=== PATIENT | male | born 1955 | race Caucasian/White ===

== ENCOUNTER 2016-10-07 16:22 | Emergency (ER) | payer MEDICARE, OTHER ==
[~2016-10-07] VITALS: Ht 180.3 cm; Wt 136.1 kg
[~2016-10-07 16:22] MED LIST: ASPI81CH43 PO; CARV12.544 PO; CETI5CHW PO; CHOL135C6 PO; CHOL200021 PO; DIG025T PO; DIGO0.1262 PO; DOXY-216 PO; HYDR-4663 PO; INSLANTI SC; INSUINJ9 IJ; LISI10TA6 PO; LORA-154 GT; MONT10TA34 PO; NIAC500T71 PO; OMEP20CA74 PO; PRED-188 PO; RANITAB8 PO; TRAM50TA2 PO; WARF2.5T PO
[2016-10-07 16:45] VITALS: BP 148/81
[2016-10-07] MEDS ORDERED: CYCLOBENZAPRINE HCL 10 MG TAB PO ONE (17:00)
[2016-10-07] MEDS ORDERED: cefTRIAXone SOD 1,000 MG VL IM ONE (17:00)
[2016-10-07] MEDS ORDERED: KETOROLAC TROMETH 60MG/2ML VIAL IM ONE (17:00)
[2016-10-07] MEDS ORDERED: HYDROcodone-ACET 10/325MG TAB PO ONE ×2 (18:00→22:45)
== END 2016-10-07 22:30 | disposition home or self-care (01) ==
LOC: ER 16:22 → EDBD 16:22 → ER 19:02
DX: S33.5XXA Sprain of ligaments of lumbar spine, initial encounter (principal); N39.0 Urinary tract infection, site not specified; M54.31 Sciatica, right side; E11.22 Type 2 diabetes mellitus with diabetic chronic kidney disease; I12.9 Hypertensive chronic kidney disease with stage 1 through stage 4 chronic kidney disease, or unspecified chronic kidney disease; N18.9 Chronic kidney disease, unspecified; I48.91 Unspecified atrial fibrillation; Z85.9 Personal history of malignant neoplasm, unspecified; Z79.01 Long term (current) use of anticoagulants; Z79.4 Long term (current) use of insulin; Z79.82 Long term (current) use of aspirin; E66.01 Morbid (severe) obesity due to excess calories; Z68.41 Body mass index [BMI] 40.0-44.9, adult; Z91.09 Other allergy status, other than to drugs and biological substances; X58.XXXA Exposure to other specified factors, initial encounter; Y93.89 Activity, other specified; Y99.8 Other external cause status; Y92.89 Other specified places as the place of occurrence of the external cause
CPT/HCPCS: 72100; 72131; 82962; 96372; 99284; J0696; J1885

== ENCOUNTER 2017-04-17 12:15 | Inpatient (IN) | payer OTHER ==
[~2017-04-17] VITALS: Ht 180.3 cm; Wt 143.3 kg
[~2017-04-17 12:15] MED LIST changes: -HYDR-4663 PO; +HYDR-4683 PO
[2017-04-17] MEDS ORDERED: SODIUM CHLORIDE 0.9% 500 ML IVB ONE (12:41)
[2017-04-17] MEDS ORDERED: PANTOPRAZOLE 40 MG/10 ML VIAL IV ONE (12:45)
[2017-04-17 13:36] LABS: Basophils # (auto) 0 uL; Basophils % (auto) 0.3 % (0.0-2.0); Eosinophils # (auto) 0.1 uL; Hematocrit 42.5 % (41.0-53.0); Hemoglobin 13.3 g/dL (13.5-17.5); Lymphocytes # (auto) 1.1 uL; Lymphocytes % (auto) 8.9 % (10.0-50.0); Mean Corpuscular Hemoglobin 29.3 pg (28.0-32.0); Mean Corpuscular Hgb Conc. 31.3 g/dL (32.0-36.0); Mean Corpuscular Volume 93.5 fL (80.0-100.0); Monocytes # (auto) 1.1 uL; Monocytes % (auto) 9.3 % (0.0-12.0); Neutrophils # (auto) 9.6 uL; Neutrophils % (auto) 80.5 % (37.0-80.0); Nucleated Red Blood Cells % 0.2 %; Platelet Count (auto) 197 10^3/uL (140-450); Red Blood Cells 4.55 10^6/uL (4.5-5.90); Red Cell Distribution Width 15.3 % (11.8-14.3)
[2017-04-17 13:49] LABS: INR 0.98 (0.9-1.15); Partial Thromboplastin Time 25.5 sec (22.64-33.71); Prothrombin Time 10.7 sec (9.37-12.3)
[2017-04-17 13:52] LABS: BUN/Creatinine Ratio 30.8; Bilirubin, Total 0.8 mg/dL (0.2-1.0); Calcium 8.4 mg/dL (8.5-10.1); Total Protein 6.4 g/dL (6.4-8.2)
[2017-04-17] MEDS ORDERED: MORPHINE SULF INJ 2 MG/ML SYRINGE 1ML IV PRN (15:45)
[2017-04-17] MEDS ORDERED: ACETAMINOPHEN 325 MG TAB PO PRN (15:45)
[2017-04-17] MEDS ORDERED: ONDANSETRON HCL 4 MG/2 ML VIAL IV PRN (15:45)
[2017-04-17] MEDS ORDERED: NITROGLYCERIN 0.4 MG SL TAB SL PRN (15:45)
[2017-04-17] MEDS ORDERED: INSREG3 SC (16:05)
[2017-04-17] MEDS ORDERED: GABA-339 PO (16:05)
[2017-04-17] MEDS ORDERED: FENO1TAB42 PO (16:05)
[2017-04-17] MEDS ORDERED: INSLANTI SC (16:05)
[2017-04-17] MEDS: HYDROcodone-ACET 10/325MG TAB PO PRN (16:17)
[2017-04-17] MEDS: SODIUM CHLORIDE 0.9% 1,000 ML IV SCH (16:22)
[2017-04-17] MEDS: InsuLIN REG 1unit/0.01ml Soln (100units/ml) SC SCH (17:32)
[2017-04-17] MEDS: GABAPENTIN 100 MG CAP PO SCH ×2 (18:00→22:27)
[2017-04-17 22:00] VITALS: BP 116/71
[2017-04-17] MEDS: CARVEDILOL 12.5 MG TAB PO SCH (22:26)
[2017-04-17] MEDS: INSULIN DETEMIR(LEVEMIR) 1unit/0.01ml Soln (100units/ml) SC SCH (22:27)
[2017-04-17] MEDS: predniSONE 20 MG TAB PO SCH (22:28)
[2017-04-18 05:01] VITALS: BP 135/75
[2017-04-18] MEDS: SODIUM CHLORIDE 0.9% 1,000 ML IV SCH ×4 (05:04→14:07)
[2017-04-18] MEDS: GABAPENTIN 100 MG CAP PO SCH ×4 (05:45→21:44)
[2017-04-18] MEDS: HYDROcodone-ACET 10/325MG TAB PO PRN ×3 (05:45→21:46)
[2017-04-18] MEDS: InsuLIN REG 1unit/0.01ml Soln (100units/ml) SC SCH ×3 (06:53→18:45)
[2017-04-18] MEDS: DIGOXIN 0.25 MG TAB PO SCH (06:53)
[2017-04-18] MEDS ORDERED: ceFAZolin 1GM/50ML 100 ML IV ONE (09:13)
[2017-04-18] MEDS ORDERED: LIDOCAINE 1% HCL (LOCAL ANESTH.) INJ 20ML MDV ONE (09:14)
[2017-04-18] MEDS ORDERED: ceFAZolin 1GM VL ONE (09:14)
[2017-04-18] MEDS ORDERED: BUPIVACAINE 0.25% INJ 50ML VIAL ONE (09:14)
[2017-04-18] MEDS ORDERED: MIDAZOLAM HCL 1MG/1ML-2 ML VIAL ONE (09:34)
[2017-04-18] MEDS ORDERED: fentaNYL CITRATE 5 ML ONE (09:34)
[2017-04-18] MEDS ORDERED: SUCCINYLCHOLINE CHLORIDE 20 MG/ML 10ML VIAL IV ONE (09:35)
[2017-04-18] MEDS ORDERED: PROPOFOL 10 MG/ML 20 ML IV ONE (09:38)
[2017-04-18] MEDS ORDERED: ROCURONIUM 10MG/ML 10ML VIAL IV ONE (09:44)
[2017-04-18 09:58] LABS: Basophils # (auto) 0.1 uL; Basophils % (auto) 0.5 % (0.0-2.0); Eosinophils # (auto) 0.2 uL; Eosinophils % (auto) 1.7 % (0.0-7.0); Hematocrit 38.3 % (41.0-53.0); Hemoglobin 12.8 g/dL (13.5-17.5); Lymphocytes # (auto) 2.8 uL; Lymphocytes % (auto) 25.6 % (10.0-50.0); Mean Corpuscular Hemoglobin 29.7 pg (28.0-32.0); Mean Corpuscular Hgb Conc. 33.5 g/dL (32.0-36.0); Mean Corpuscular Volume 88.6 fL (80.0-100.0); Monocytes # (auto) 1.3 uL; Monocytes % (auto) 11.9 % (0.0-12.0); Neutrophils # (auto) 6.6 uL; Neutrophils % (auto) 60.3 % (37.0-80.0); Platelet Count (auto) 208 10^3/uL (140-450); Red Blood Cells 4.32 10^6/uL (4.5-5.90); Red Cell Distribution Width 14.7 % (11.8-14.3); White Blood Cell 10.9 10^3/uL (4.4-10.8)
[2017-04-18] MEDS: FENOFIBRATE 134 MG PO SCH (10:00)
[2017-04-18 10:25] LABS: Albumin 2.9 g/dL (3.4-5.0); BUN/Creatinine Ratio 26.6; Bilirubin, Total 0.8 mg/dL (0.2-1.0); Calcium 8.1 mg/dL (8.5-10.1); Potassium 3.2 mmol/L (3.5-5.1)
[2017-04-18] MEDS ORDERED: hydrALAZINE HCL 20 MG/ML VL IV PRN (11:30)
[2017-04-18] MEDS ORDERED: ePHEDrine SULFATE 50 MG/ML AMP IV PRN (11:30)
[2017-04-18] MEDS ORDERED: ONDANSETRON HCL 4 MG/2 ML VIAL IV ONE (11:30)
[2017-04-18] MEDS: HYDROmorphone HCL 2 MG/ML VL IV PRN ×4 (11:40→12:12)
[2017-04-18] MEDS: INSULIN DETEMIR(LEVEMIR) 1unit/0.01ml Soln (100units/ml) SC SCH ×2 (11:43→21:45)
[2017-04-18] MEDS: predniSONE 20 MG TAB PO SCH ×2 (12:59→21:43)
[2017-04-18] MEDS: CARVEDILOL 12.5 MG TAB PO SCH ×2 (12:59→21:44)
[2017-04-18] MEDS: PANTOPRAZOLE 40 MG TAB PO SCH (12:59)
[2017-04-18] MEDS: LORATADINE 10 MG TAB PO SCH (12:59)
[2017-04-18] MEDS: ceFAZolin 1GM/50ML 50 ML IV SCH ×3 (13:00→23:56)
[2017-04-18] MEDS ORDERED: GLYCOPYRROLATE 0.2 MG/ML 1ML VIAL ONE (13:01)
[2017-04-18] MEDS ORDERED: NEOSTIGMINE 1 MG/ML INJ (10mg/10ML VIAL) ONE (13:01)
[2017-04-18 17:18] VITALS: BP 119/70
[2017-04-18 18:14] LABS: Hemoglobin 12.5 g/dL (13.5-17.5); Mean Corpuscular Hemoglobin 29.6 pg (28.0-32.0); Mean Corpuscular Volume 89.8 fL (80.0-100.0); Red Blood Cells 4.23 10^6/uL (4.5-5.90); Red Cell Distribution Width 14.9 % (11.8-14.3); White Blood Cell 13.3 10^3/uL (4.4-10.8)
[2017-04-18 21:45] VITALS: BP 131/77
[2017-04-18] MEDS ORDERED: ceFAZolin 1GM/50ML 50 ML IV ONE (23:53)
[2017-04-19 00:53] LABS: Hematocrit 38.7 % (41.0-53.0); Hemoglobin 12.7 g/dL (13.5-17.5); Mean Corpuscular Hemoglobin 29.3 pg (28.0-32.0); Mean Corpuscular Hgb Conc. 32.7 g/dL (32.0-36.0); Mean Corpuscular Volume 89.6 fL (80.0-100.0); Red Blood Cells 4.32 10^6/uL (4.5-5.90); Red Cell Distribution Width 14.9 % (11.8-14.3); White Blood Cell 13.9 10^3/uL (4.4-10.8)
[2017-04-19] MEDS: HYDROcodone-ACET 10/325MG TAB PO PRN (05:03)
[2017-04-19 05:31] VITALS: BP 116/58
[2017-04-19] MEDS: ceFAZolin 1GM/50ML 50 ML IV SCH ×3 (05:39→18:46)
[2017-04-19 05:57] LABS: Basophils # (auto) 0 uL; Basophils % (auto) 0.2 % (0.0-2.0); Eosinophils # (auto) 0 uL; Eosinophils % (auto) 0.3 % (0.0-7.0); Hematocrit 38.5 % (41.0-53.0); Hemoglobin 12.7 g/dL (13.5-17.5); Lymphocytes # (auto) 1.1 uL; Lymphocytes % (auto) 7.5 % (10.0-50.0); Mean Corpuscular Hemoglobin 29.7 pg (28.0-32.0); Mean Corpuscular Volume 89.8 fL (80.0-100.0); Monocytes # (auto) 1.7 uL; Monocytes % (auto) 11.6 % (0.0-12.0); Neutrophils # (auto) 11.4 uL; Neutrophils % (auto) 80.4 % (37.0-80.0); Nucleated Red Blood Cells % 0.1 %; Platelet Count (auto) 198 10^3/uL (140-450); Red Blood Cells 4.29 10^6/uL (4.5-5.90); White Blood Cell 14.2 10^3/uL (4.4-10.8)
[2017-04-19] MEDS: GABAPENTIN 100 MG CAP PO SCH ×3 (06:24→18:45)
[2017-04-19] MEDS: DIGOXIN 0.25 MG TAB PO SCH (06:44)
[2017-04-19] MEDS: InsuLIN REG 1unit/0.01ml Soln (100units/ml) SC SCH ×3 (06:45→18:45)
[2017-04-19] MEDS: FENOFIBRATE 134 MG PO SCH (08:37)
[2017-04-19] MEDS: PANTOPRAZOLE 40 MG TAB PO SCH (08:38)
[2017-04-19] MEDS: CARVEDILOL 12.5 MG TAB PO SCH (08:39)
[2017-04-19] MEDS: LORATADINE 10 MG TAB PO SCH (08:40)
[2017-04-19] MEDS: INSULIN DETEMIR(LEVEMIR) 1unit/0.01ml Soln (100units/ml) SC SCH (08:40)
[2017-04-19] MEDS: predniSONE 20 MG TAB PO SCH (08:40)
[2017-04-19] MEDS: MORPHINE SULFATE 10 MG/ML INJ 1ML SDV IV PRN ×2 (08:41→19:07)
[2017-04-19 08:42] VITALS: BP 116/58
[2017-04-19] MEDS ORDERED: HYDR-4072 PO (09:03)
[2017-04-19] MEDS ORDERED: ACE325T PO (09:03)
[2017-04-19] MEDS ORDERED: DOCU-94 PO (09:05)
[2017-04-19] MEDS ORDERED: ENOXAPARIN SOD 40 MG/0.4 ML SYRINGE SC SCH (10:00)
[2017-04-19 12:15] VITALS: BP 103/47
[2017-04-19 12:25] LABS: Hematocrit 38.4 % (41.0-53.0); Hemoglobin 12.6 g/dL (13.5-17.5); Mean Corpuscular Hemoglobin 29.3 pg (28.0-32.0); Mean Corpuscular Hgb Conc. 32.7 g/dL (32.0-36.0); Mean Corpuscular Volume 89.8 fL (80.0-100.0); Red Blood Cells 4.28 10^6/uL (4.5-5.90); Red Cell Distribution Width 15.2 % (11.8-14.3); White Blood Cell 13.2 10^3/uL (4.4-10.8)
[2017-04-19 16:11] VITALS: BP 116/58
[2017-04-19 16:25] VITALS: BP 107/67
[2017-04-19] MEDS: SODIUM CHLORIDE 0.9% 1,000 ML IV SCH (17:45)
[2017-04-19] MEDS ORDERED: TAMSULOSIN HYDROCHLORIDE 0.4 MG CAP PO SCH (18:00)
== END 2017-04-19 19:55 | DRG 493 ==
LOC: ER 12:15 → EDBD 12:15 → OVERFLOW 12:16 → CENTRAL 20:05
PROVIDERS: ADMIT Internal Medicine; ATTEND Internal Medicine
PROC: 0MQQ0ZZ Repair Right Ankle Bursa and Ligament, Open Approach (ICD-10-PCS; 2017-04-18)
PROC: 0SSF0ZZ Reposition Right Ankle Joint, Open Approach (ICD-10-PCS; 2017-04-18)
PROC: 0QSJ04Z Reposition Right Fibula with Internal Fixation Device, Open Approach (ICD-10-PCS; principal; 2017-04-18 09:35)
DX: S82.61XA Displaced fracture of lateral malleolus of right fibula, initial encounter for closed fracture (principal); K86.1 Other chronic pancreatitis; E66.01 Morbid (severe) obesity due to excess calories; E11.65 Type 2 diabetes mellitus with hyperglycemia; K76.0 Fatty (change of) liver, not elsewhere classified; Z68.41 Body mass index [BMI] 40.0-44.9, adult; W19.XXXA Unspecified fall, initial encounter; W18.39XA Other fall on same level, initial encounter; I10 Essential (primary) hypertension; I48.91 Unspecified atrial fibrillation; M43.16 Spondylolisthesis, lumbar region; Z79.01 Long term (current) use of anticoagulants; Z82.49 Family history of ischemic heart disease and other diseases of the circulatory system; Z90.49 Acquired absence of other specified parts of digestive tract; Y93.89 Activity, other specified; Y92.89 Other specified places as the place of occurrence of the external cause; S93.421A Sprain of deltoid ligament of right ankle, initial encounter; Z79.899 Other long term (current) drug therapy; Z88.7 Allergy status to serum and vaccine; Z79.82 Long term (current) use of aspirin; Z79.4 Long term (current) use of insulin; S32.059D Unspecified fracture of fifth lumbar vertebra, subsequent encounter for fracture with routine healing; S32.10XD Unspecified fracture of sacrum, subsequent encounter for fracture with routine healing
CPT/HCPCS: 36415; 71045; 73600; 73610; 73630; 74176; 76000; 80053; 82150; 82962; 83036; 83690; 83735; 85025; 85027; 85610; 85730; 93005; 96361; 96372; 96374; 97163; 99291; C9113; J0330; J0690; J1815; J2001; J2250; J2405; J2704; J3490

== ENCOUNTER 2017-05-29 22:03 | Inpatient (IN) | payer OTHER ==
[~2017-05-29] VITALS: Ht 175.3 cm; Wt 131.0 kg
[~2017-05-29 22:03] MED LIST changes: +ACE325T PO; +DOCU-94 PO; -DOXY-216 PO; +FENO1TAB42 PO; +GABA-339 PO; +HYDR-4072 PO; +INSREG3 SC; -PRED-188 PO; -TRAM50TA2 PO
[2017-05-30 00:14] LABS: Basophils # (auto) 0.1 uL; Basophils % (auto) 0.5 % (0.0-2.0); Eosinophils # (auto) 0.2 uL; Hematocrit 48.8 % (41.0-53.0); Hemoglobin 16.2 g/dL (13.5-17.5); Lymphocytes # (auto) 2.3 uL; Mean Corpuscular Hemoglobin 29.5 pg (28.0-32.0); Mean Corpuscular Hgb Conc. 33.2 g/dL (32.0-36.0); Monocytes # (auto) 1.4 uL; Monocytes % (auto) 8.5 % (0.0-12.0); Neutrophils # (auto) 12.4 uL; Nucleated Red Blood Cells % 0.1 %; Platelet Count (auto) 284 10^3/uL (140-450); Red Blood Cells 5.48 10^6/uL (4.5-5.90); Red Cell Distribution Width 15.1 % (11.8-14.3); White Blood Cell 16.4 10^3/uL (4.4-10.8)
[2017-05-30 00:34] LABS: Alanine Aminotransferase 60 U/L (16-61); Albumin 3.3 g/dL (3.4-5.0); Amylase 17 U/L (25-115); Anion Gap 11 (5-15); Aspartate Aminotransferase 32 U/L (15-37); Blood Urea Nitrogen 21 mg/dL (7-18); Calcium 9.3 mg/dL (8.5-10.1); Carbon Dioxide 24 mmol/L (21-32); Chloride 103 mmol/L (98-107); GFR African American 147 mL/min; GFR Non-African American 121 mL/min; Glucose 145 mg/dL (74-106); Lipase 52 U/L (73-393); Potassium 3.9 mmol/L (3.5-5.1); Sodium 138 mmol/L (136-145)
[2017-05-30 00:39] LABS: Alkaline Phosphatase 89 U/L (45-117); Total Protein 7.4 g/dL (6.4-8.2)
[2017-05-30] MEDS ORDERED: SODIUM CHLORIDE 0.9% 1,000 ML IV ONE (01:30)
[2017-05-30] MEDS ORDERED: DILTIAZEM HCL 25 MG/5 ML VIAL IV ONE (01:30)
[2017-05-30] MEDS ORDERED: MECLIZINE HCL 25 MG TAB PO ONE (01:30)
[2017-05-30] MEDS ORDERED: DIGOXIN (250MCG/ML) 2 ML AMPULE IV ONE (03:00)
[2017-05-30] MEDS ORDERED: ACETAMINOPHEN 325 MG TAB PO PRN (09:15)
[2017-05-30] MEDS ORDERED: ONDANSETRON HCL 4 MG/2 ML VIAL IV PRN (09:15)
[2017-05-30] MEDS ORDERED: DOCUSATE SOD 100 MG CAP PO PRN (09:15)
[2017-05-30] MEDS ORDERED: NITROGLYCERIN 0.4 MG SL TAB SL PRN (09:15)
[2017-05-30] MEDS ORDERED: HYDROcodone-ACET 5/325MG TAB PO PRN (09:15)
[2017-05-30] MEDS ORDERED: TEMAZEPAM 15 MG CAP PO PRN (09:15)
[2017-05-30] MEDS ORDERED: MORPHINE SULFATE 4 MG/ML SYR/VIAL IV PRN (09:15)
[2017-05-30] MEDS ORDERED: DEXTROSE (50%) 50ML SYRG IV PRN (09:30)
[2017-05-30] MEDS: SODIUM CHLORIDE 0.9% 1,000 ML IV SCH ×2 (09:37→13:38)
[2017-05-30] MEDS ORDERED: cefTRIAXone 1GM/10ml IVPUSH 10 ML IV ONE (09:45)
[2017-05-30] MEDS ORDERED: DIGOXIN 0.125 MG TAB PO SCH (10:00)
[2017-05-30] MEDS: LACTULOSE 20Gm/30ML SOLN PO SCH (10:00)
[2017-05-30] MEDS: FENOFIBRATE 145 MG PO SCH (10:00)
[2017-05-30 10:31] LABS: INR 1.05 (0.9-1.15); Partial Thromboplastin Time 29.9 sec (22.64-33.71); Prothrombin Time 11.5 sec (9.37-12.3)
[2017-05-30] MEDS: GABAPENTIN 300 MG CAP PO SCH ×3 (11:51→22:06)
[2017-05-30] MEDS: ASCORBIC ACID 500 MG TAB PO SCH ×2 (11:52→22:06)
[2017-05-30] MEDS: MULTIPLE VITAMIN TAB PO SCH (11:55)
[2017-05-30] MEDS: ZINC SULFATE 220 MG CAP PO SCH (11:56)
[2017-05-30] MEDS: FAMOTIDINE 20 MG TAB PO SCH ×2 (11:56→22:07)
[2017-05-30 12:00] VITALS: BP 117/71
[2017-05-30] MEDS: InsuLIN REG 1unit/0.01ml Soln (100units/ml) SC SCH ×5 (13:39→22:00)
[2017-05-30] MEDS: metroNIDAZOLE 500MG/100ML 100 ML IV SCH ×2 (13:39→22:08)
[2017-05-30] MEDS: ACCU-CHEK COMFORT CURVE STRIP VI SCH ×3 (13:39→22:08)
[2017-05-30 16:55] VITALS: BP 116/70
[2017-05-30] MEDS ORDERED: WARFARIN SODIUM 2.5 MG TAB PO ONE (17:00)
[2017-05-30] MEDS ORDERED: DIGOXIN 0.125 MG TAB PO ONE (18:30)
[2017-05-30 19:41] LABS: Urine Bacteria NONE SEEN /hpf (None Seen); Urine Blood Negative /uL (Negative); Urine Mucus FEW (None Seen); Urine Specific Gravity 1.031 (1.001-1.035); Urine WBC 5 /hpf (0 - 3)
[2017-05-30] MEDS: INSULIN LANTUS (GLARGINE) 1 /0.01ml (100units/ml) SC SCH (22:00)
[2017-05-30] MEDS: DIGOXIN 0.125 MG TAB PO SCH (22:07)
[2017-05-30] MEDS: RIVAROXABAN 10 MG TAB PO SCH (22:07)
[2017-05-30] MEDS: MONTELUKAST SODIUM 10 MG TAB PO SCH (22:07)
[2017-05-31] MEDS ORDERED: CAR125T PO (00:39)
[2017-05-31] MEDS ORDERED: MAGN400S25 PO (00:39)
[2017-05-31] MEDS ORDERED: PANT40TA2 PO (00:39)
[2017-05-31] MEDS ORDERED: [UNRECOGNIZED DRUG - CODE] PO (00:39)
[2017-05-31] MEDS ORDERED: CYCL1TAB18 PO (00:39)
[2017-05-31] MEDS ORDERED: NITR0.4S29 SL (00:39)
[2017-05-31] MEDS ORDERED: ASCO500C49 PO (00:39)
[2017-05-31] MEDS ORDERED: INSLISPI SC (00:39)
[2017-05-31] MEDS ORDERED: RIVA20TA PO (00:39)
[2017-05-31] MEDS ORDERED: MECL-87 PO (00:39)
[2017-05-31] MEDS ORDERED: PERCOT PO (00:39)
[2017-05-31] MEDS ORDERED: LACT10SO3 PO (00:39)
[2017-05-31] MEDS ORDERED: PRE5T PO (00:39)
[2017-05-31] MEDS ORDERED: OMEP20CA74 PO (00:39)
[2017-05-31] MEDS ORDERED: BISA-4 PO (00:39)
[2017-05-31] MEDS ORDERED: FERR200T3 PO (00:39)
[2017-05-31] MEDS ORDERED: ONDA4TAB5 PO (00:39)
[2017-05-31 05:13] VITALS: BP 120/67
[2017-05-31] MEDS: GABAPENTIN 300 MG CAP PO SCH ×4 (06:11→21:36)
[2017-05-31] MEDS: metroNIDAZOLE 500MG/100ML 100 ML IV SCH (06:11)
[2017-05-31 06:20] LABS: Basophils # (auto) 0 uL; Basophils % (auto) 0.2 % (0.0-2.0); Eosinophils # (auto) 0.1 uL; Eosinophils % (auto) 0.7 % (0.0-7.0); Hematocrit 44.5 % (41.0-53.0); Hemoglobin 14.7 g/dL (13.5-17.5); Lymphocytes # (auto) 0.4 uL; Lymphocytes % (auto) 2.7 % (10.0-50.0); Mean Corpuscular Hgb Conc. 33.1 g/dL (32.0-36.0); Mean Corpuscular Volume 90.5 fL (80.0-100.0); Monocytes # (auto) 0.7 uL; Monocytes % (auto) 5.2 % (0.0-12.0); Neutrophils # (auto) 12.9 uL; Neutrophils % (auto) 91.2 % (37.0-80.0); Platelet Count (auto) 231 10^3/uL (140-450); Red Blood Cells 4.92 10^6/uL (4.5-5.90); Red Cell Distribution Width 15.2 % (11.8-14.3); White Blood Cell 14.1 10^3/uL (4.4-10.8)
[2017-05-31 06:46] LABS: Albumin 2.9 g/dL (3.4-5.0); BUN/Creatinine Ratio 27.4; Potassium 3.4 mmol/L (3.5-5.1); Total Protein 6.6 g/dL (6.4-8.2)
[2017-05-31] MEDS: InsuLIN REG 1unit/0.01ml Soln (100units/ml) SC SCH ×7 (07:00→21:50)
[2017-05-31] MEDS: INSULIN LANTUS (GLARGINE) 1 /0.01ml (100units/ml) SC SCH ×2 (07:01→21:50)
[2017-05-31] MEDS: ACCU-CHEK COMFORT CURVE STRIP VI SCH ×3 (07:02→17:56)
[2017-05-31 08:25] VITALS: BP 133/71
[2017-05-31 08:36] VITALS: BP 133/71
[2017-05-31] MEDS ORDERED: cefTRIAXone 1GM/10ml IVPUSH 10 ML IV SCH (09:00)
[2017-05-31] MEDS: LACTULOSE 20Gm/30ML SOLN PO SCH (09:23)
[2017-05-31] MEDS: MULTIPLE VITAMIN TAB PO SCH (09:23)
[2017-05-31] MEDS: FAMOTIDINE 20 MG TAB PO SCH ×2 (09:23→16:48)
[2017-05-31] MEDS: ASCORBIC ACID 500 MG TAB PO SCH ×2 (09:23→21:36)
[2017-05-31] MEDS: DIGOXIN 0.125 MG TAB PO SCH ×2 (09:24→21:37)
[2017-05-31] MEDS: ZINC SULFATE 220 MG CAP PO SCH (09:25)
[2017-05-31] MEDS: RIVAROXABAN 10 MG TAB PO SCH (09:25)
[2017-05-31] MEDS: FENOFIBRATE 145 MG PO SCH (10:00)
[2017-05-31] MEDS ORDERED: ONDANSETRON HCL 4 MG/2 ML VIAL IV PRN (11:30)
[2017-05-31 13:00] VITALS: BP 118/82
[2017-05-31 16:19] VITALS: BP 118/82
[2017-05-31] MEDS ORDERED: predniSONE 20 MG TAB PO ONE (17:15)
[2017-05-31] MEDS: MONTELUKAST SODIUM 10 MG TAB PO SCH (21:36)
[2017-05-31 22:00] VITALS: BP 131/67
[2017-06-01] MEDS: SODIUM CHLORIDE 0.9% 1,000 ML IV SCH ×2 (04:13→11:13)
[2017-06-01] MEDS: ACCU-CHEK COMFORT CURVE STRIP VI SCH ×3 (04:14→11:30)
[2017-06-01 04:56] VITALS: BP 126/87
[2017-06-01] MEDS: GABAPENTIN 300 MG CAP PO SCH ×2 (05:50→13:03)
[2017-06-01] MEDS: INSULIN LANTUS (GLARGINE) 1 /0.01ml (100units/ml) SC SCH (06:21)
[2017-06-01] MEDS: InsuLIN REG 1unit/0.01ml Soln (100units/ml) SC SCH ×4 (06:21→13:07)
[2017-06-01 06:53] LABS: Basophils # (auto) 0 uL; Eosinophils # (auto) 0.4 uL; Eosinophils % (auto) 3.4 % (0.0-7.0); Hematocrit 41.3 % (41.0-53.0); Hemoglobin 13.7 g/dL (13.5-17.5); Lymphocytes # (auto) 0.5 uL; Lymphocytes % (auto) 4.4 % (10.0-50.0); Mean Corpuscular Hemoglobin 29.7 pg (28.0-32.0); Mean Corpuscular Hgb Conc. 33.1 g/dL (32.0-36.0); Mean Corpuscular Volume 89.5 fL (80.0-100.0); Monocytes # (auto) 0.5 uL; Monocytes % (auto) 4.8 % (0.0-12.0); Neutrophils # (auto) 10.1 uL; Neutrophils % (auto) 87.4 % (37.0-80.0); Platelet Count (auto) 225 10^3/uL (140-450); Red Blood Cells 4.62 10^6/uL (4.5-5.90); Red Cell Distribution Width 14.6 % (11.8-14.3); White Blood Cell 11.5 10^3/uL (4.4-10.8)
[2017-06-01 07:12] LABS: Albumin 2.6 g/dL (3.4-5.0); BUN/Creatinine Ratio 20.5; Calcium 7.7 mg/dL (8.5-10.1)
[2017-06-01 07:15] LABS: Bilirubin, Total 0.6 mg/dL (0.2-1.0); Total Protein 6.2 g/dL (6.4-8.2)
[2017-06-01 09:00] VITALS: BP 144/88
[2017-06-01] MEDS: FENOFIBRATE 145 MG PO SCH (10:00)
[2017-06-01] MEDS ORDERED: predniSONE 20 MG TAB PO SCH (10:00)
[2017-06-01] MEDS: LACTULOSE 20Gm/30ML SOLN PO SCH (10:00)
[2017-06-01] MEDS ORDERED: OMEPRAZOLE 20MG/10ML ORAL SUSP PO SCH (10:00)
[2017-06-01] MEDS ORDERED: PANTOPRAZOLE 40 MG TAB PO SCH (10:30)
[2017-06-01] MEDS: RIVAROXABAN 10 MG TAB PO SCH (11:04)
[2017-06-01] MEDS: MULTIPLE VITAMIN TAB PO SCH (11:05)
[2017-06-01] MEDS: ZINC SULFATE 220 MG CAP PO SCH (11:05)
[2017-06-01] MEDS: DIGOXIN 0.125 MG TAB PO SCH (11:05)
[2017-06-01] MEDS: ASCORBIC ACID 500 MG TAB PO SCH (11:06)
[2017-06-01] MEDS ORDERED: VANC125PO GT (11:17)
[2017-06-01] MEDS ORDERED: METR500T PO (11:17)
[2017-06-01] MEDS ORDERED: ASCO500T11 PO (11:17)
[2017-06-01] MEDS ORDERED: MISC4CAP PO (11:17)
[2017-06-01 13:00] VITALS: BP 121/73
[2017-06-01] MEDS: VANCOMYCIN HCL 125MG/5ML ORAL SOL GT SCH ×2 (13:04→16:29)
[2017-06-01] MEDS ORDERED: metroNIDAZOLE 500MG/100ML 100 ML IV SCH (14:00)
== END 2017-06-01 18:30 | DRG 372 ==
LOC: EDBD 22:03 → ER 22:11 → TELE 22:12 → TELE-WESTW 05-30 10:13
PROVIDERS: ADMIT Internal Medicine; ATTEND Hospitalist
DX: A04.72 Enterocolitis due to Clostridium difficile, not specified as recurrent (principal); E44.0 Moderate protein-calorie malnutrition; I48.2 Chronic atrial fibrillation; K56.7 Ileus, unspecified; I48.1 Persistent atrial fibrillation; I13.10 Hypertensive heart and chronic kidney disease without heart failure, with stage 1 through stage 4 chronic kidney disease, or unspecified chronic kidney disease; I48.92 Unspecified atrial flutter; J98.11 Atelectasis; Z68.41 Body mass index [BMI] 40.0-44.9, adult; N18.9 Chronic kidney disease, unspecified; E10.9 Type 1 diabetes mellitus without complications; K59.00 Constipation, unspecified; E66.9 Obesity, unspecified; R33.9 Retention of urine, unspecified; Z87.81 Personal history of (healed) traumatic fracture; Z88.7 Allergy status to serum and vaccine; Z79.899 Other long term (current) drug therapy; Z79.01 Long term (current) use of anticoagulants; Z90.49 Acquired absence of other specified parts of digestive tract; Z90.89 Acquired absence of other organs; Z80.8 Family history of malignant neoplasm of other organs or systems; Z85.89 Personal history of malignant neoplasm of other organs and systems; Z82.49 Family history of ischemic heart disease and other diseases of the circulatory system
CPT/HCPCS: 36415; 70450; 71045; 74176; 80053; 80162; 81001; 82150; 82962; 83036; 83690; 84443; 84484; 85025; 85610; 85730; 87040; 87045; 87081; 87086; 87493; 87899; 93005; 94761; 96374; 96375; J1815; J3490

== ENCOUNTER 2018-01-07 18:29 | Observation (INO) | payer OTHER ==
[~2018-01-07] VITALS: Ht 185.4 cm; Wt 136.1 kg
[~2018-01-07 18:29] MED LIST changes: +ASCO500C49 PO; +ASCO500T11 PO; +BISA-4 PO; +CAR125T PO; -CARV12.544 PO; +CYCL1TAB18 PO; -DIG025T PO; -DOCU-94 PO; +FERR200T3 PO; -HYDR-4683 PO; +INSLISPI SC; -INSREG3 SC; -INSUINJ9 IJ; +MECL-87 PO; +METR500T PO; +MISC4CAP PO; -NIAC500T71 PO; +NITR0.4S29 SL; +ONDA4TAB5 PO; +PRE5T PO; -RANITAB8 PO; +RIVA20TA PO; +VANC125PO GT; -WARF2.5T PO
[2018-01-07 20:00] LABS: Basophils # (auto) 0 uL; Basophils % (auto) 0.3 % (0.0-2.0); Eosinophils # (auto) 0 uL; Eosinophils % (auto) 0.3 % (0.0-7.0); Hematocrit 43.4 % (41.0-53.0); Hemoglobin 14.3 g/dL (13.5-17.5); Lymphocytes # (auto) 1.5 uL; Lymphocytes % (auto) 12.2 % (10.0-50.0); Mean Corpuscular Hemoglobin 29.2 pg (28.0-32.0); Mean Corpuscular Hgb Conc. 32.8 g/dL (32.0-36.0); Mean Corpuscular Volume 89.1 fL (80.0-100.0); Monocytes # (auto) 0.8 uL; Monocytes % (auto) 6.8 % (0.0-12.0); Neutrophils # (auto) 9.9 uL; Neutrophils % (auto) 80.4 % (37.0-80.0); Nucleated Red Blood Cells % 0.1 %; Platelet Count (auto) 217 10^3/uL (140-450); Red Blood Cells 4.88 10^6/uL (4.5-5.90); Red Cell Distribution Width 15.2 % (11.8-14.3); White Blood Cell 12.3 10^3/uL (4.4-10.8)
[2018-01-07 20:22] LABS: Albumin 3.2 g/dL (3.4-5.0); BUN/Creatinine Ratio 23.9; Bilirubin, Total 0.5 mg/dL (0.2-1.0); INR 1.01 (0.9-1.15); Partial Thromboplastin Time 22.9 sec (23.78-33.04); Potassium 4.2 mmol/L (3.5-5.1); Prothrombin Time 10.8 sec (9.27-12.13); Total Protein 6.9 g/dL (6.4-8.2)
[2018-01-07 20:23] LABS: Alcohol, Urine < 3.0 mg/dL (0-5); Amphetamine Screen, Urine NEGATIVE (NEGATIVE); Barbiturate Scree,Urine NEGATIVE (NEGATIVE); Benzodiazephine Screen, Urine NEGATIVE (NEGATIVE); Cannabinoid Screen, Urine NEGATIVE (NEGATIVE); Cocaine Screen, Urine NEGATIVE (NEGATIVE); Opiate Scree,Urine NEGATIVE (NEGATIVE); Phencyclidine Screen, Urine NEGATIVE (NEGATIVE)
[2018-01-07 20:23] LABS: Salicylate < 1.7 mg/dL (2.8-20.0)
[2018-01-07 20:24] LABS: Acetaminophen < 2.0 ug/mL (10-30)
[2018-01-07] MEDS ORDERED: HYDROcodone-ACET 10/325MG TAB PO ONE (20:30)
[2018-01-07] MEDS ORDERED: KETOROLAC TROMETH 60MG/2ML VIAL IM ONE (20:30)
[2018-01-07] MEDS ORDERED: DIGO1TAB37 PO (21:03)
[2018-01-07] MEDS ORDERED: CHOL135C6 PO (21:03)
[2018-01-07] MEDS ORDERED: AMIT25TA9 PO (21:03)
[2018-01-07] MEDS ORDERED: INSREG3 SUBCUT (21:03)
[2018-01-07] MEDS ORDERED: TIZA4CAP7 PO (21:03)
[2018-01-07] MEDS ORDERED: ALEN1TAB32 PO (21:03)
[2018-01-07] MEDS ORDERED: CARV3.1240 PO (21:03)
[2018-01-07] MEDS ORDERED: IBU600T PO (21:03)
[2018-01-07] MEDS ORDERED: CHOL500021 PO (21:03)
[2018-01-08] MEDS ORDERED: DIGOXIN 0.25 MG TAB PO ONE (07:15)
[2018-01-08] MEDS ORDERED: INSULIN LANTUS (GLARGINE) 1 /0.01ml (100units/ml) SC ONE (07:15)
[2018-01-08] MEDS ORDERED: GABAPENTIN 300 MG CAP PO ONE ×2 (07:15→10:45)
[2018-01-08] MEDS ORDERED: CARVEDILOL 3.125 MG TAB PO ONE (07:15)
[2018-01-08 15:16] VITALS: BP 138/74
== END 2018-01-08 15:41 | disposition home or self-care (01) | DRG 880 ==
LOC: EDBD 18:29 → ER 18:31 → OVERFLOW 18:32 → ER 01-08 15:41
PROVIDERS: ADMIT Family Medicine; ATTEND Family Medicine
DX: R45.851 Suicidal ideations (principal); F33.2 Major depressive disorder, recurrent severe without psychotic features; E11.42 Type 2 diabetes mellitus with diabetic polyneuropathy; G89.29 Other chronic pain; F41.9 Anxiety disorder, unspecified; I10 Essential (primary) hypertension; M54.41 Lumbago with sciatica, right side; M54.42 Lumbago with sciatica, left side; Z82.49 Family history of ischemic heart disease and other diseases of the circulatory system
CPT/HCPCS: 36415; 71045; 80053; 80307; 80329; 82962; 83735; 85025; 85610; 85730; 93005; 96372; 99285; G0378; J1815; J1885